=== PATIENT | female | born 1985 | race Caucasian/White ===

== ENCOUNTER 2021-01-14 21:13 | Emergency (ER) | payer SELFPAY ==
[~2021-01-14] VITALS: Ht 167.6 cm; Wt 61.2 kg
[2021-01-14] MEDS ORDERED: LORAZEPAM 1 MG TAB ONE (22:00)
[2021-01-14] MEDS ORDERED: LORAZEPAM 1 MG TAB PO PRN (22:00)
[2021-01-14 22:57] VITALS: BP 132/76
[2021-01-14] MEDS ORDERED: ATIVAN1 MG PO (22:59)
== END 2021-01-14 23:02 | disposition home or self-care (01) ==
LOC: ER 21:53
DX: F41.1 Generalized anxiety disorder (principal)
CPT/HCPCS: 93005; 99283

== ENCOUNTER 2025-04-10 18:35 | Emergency (ER) | payer SELFPAY ==
[~2025-04-10] VITALS: Ht 167.6 cm; Wt 61.2 kg
[~2025-04-10 18:35] MED LIST: ATIVAN1 MG PO; OMEPRAZOLE40 MG PO
[2025-04-10 18:47] VITALS: PULSE 91; RESP 16; TEMP 98.8
[2025-04-10 19:20] LABS: BASOPHILS % 0.4 % (0.0-1.0); EOSINOPHILS % 1.3 % (0.0-6.0); LYMPHOCYTES % 16.2 % (18.0-39.1); MONOCYTES % 9.8 % (4.4-11.3); NEUTROPHILS % 71.7 % (38.7-80.0); RED CELL DISTRIBUTION WIDTH 16.0 % (11.7-14.4)
[2025-04-10 19:37] LABS: EST GLOMERULAR FILTRATION RATE 106.0 ML/MIN (>=60)
[2025-04-10 19:37] LABS: LEUKOCYTE ESTERASE ,URINE NEGATIVE (NEGATIVE); PREGNANCY TEST, URINE NEGATIVE (NEGATIVE); PROTEIN,URINE DIPSTICK 2+ (NEGATIVE); URINE UROBILINOGEN 0.2 mg/dL (0.2 - 1)
[2025-04-10] MEDS: SODIUM CHLORIDE 0.9% 1000ML 1,000 ML IV STA (19:39)
[2025-04-10] MEDS: ONDANSETRON HCL INJ 2MG/ML 2ML 2 MG/ML VIAL IV STA (19:40)
[2025-04-10 19:52] LABS: EPITHELIAL CELLS,URINE FEW /LPF; WBC,URINE (MAN) 0-5 /HPF (0-5)
[2025-04-10] MEDS ORDERED: IOPAMIDOL 370 MG/ML 100 ML INFUS..BTL INJ ONE (19:56)
[2025-04-10 19:58] LABS: CORONAVIRUS COVID-19 AG NEGATIVE (NEGATIVE)
[2025-04-10 22:56] VITALS: BP 114/88; PULSE 94; RESP 16; TEMP 98.3; O2SAT 100
== END 2025-04-10 20:52 | disposition home or self-care (01) ==
LOC: ER 18:40
DX: N93.8 Other specified abnormal uterine and vaginal bleeding (principal); D64.9 Anemia, unspecified; D25.9 Leiomyoma of uterus, unspecified; F10.10 Alcohol abuse, uncomplicated; R53.1 Weakness; R53.81 Other malaise; F41.9 Anxiety disorder, unspecified; Z11.52 Encounter for screening for COVID-19
CPT/HCPCS: 36415; 74177; 80053; 80320; 81001; 81025; 83690; 85025; 86850; 86900; 87428; 93005; 99283; J2405; J7030; Q9967